=== PATIENT | female | born 1985 | race Caucasian/White ===

== ENCOUNTER 2018-03-27 00:25 | Emergency (ER) | payer MEDICAID ==
[~2018-03-27] VITALS: Ht 172.7 cm; Wt 141.0 kg
[~2018-03-27 00:25] MED LIST: DEPO SHOT
[2018-03-27] MEDS ORDERED: METHYLPREDNISOLONE SOD SUCC 125 MG/2 ML VIAL IM STA (00:46)
[2018-03-27] MEDS ORDERED: ALBUTEROL (0.083%) 2.5MG/3ML NEB HHN STA ×2 (00:46→02:53)
[2018-03-27] MEDS ORDERED: IPRATROPIUM BROMIDE (0.02%) 0.5MG/2.5ML NEB HHN STA ×2 (00:46→02:53)
[2018-03-27 02:06] LABS: UCG SCREEN NEGATIVE
[2018-03-27 04:18] VITALS: BP 159/93
== END 2018-03-27 04:19 | disposition home or self-care (01) ==
LOC: ER 00:25
DX: J45.901 Unspecified asthma with (acute) exacerbation (principal); F12.10 Cannabis abuse, uncomplicated; Z90.49 Acquired absence of other specified parts of digestive tract
CPT/HCPCS: 71045; 81025; 94640; 94644; 96372; 99285; J2930; J7611

== ENCOUNTER 2021-01-22 23:08 | Emergency (ER) | payer MEDICAID ==
[~2021-01-22] VITALS: Ht 172.7 cm; Wt 100.0 kg
[2021-01-22] MEDS ORDERED: IPRATROPIUM BROMIDE (0.02%) 0.5MG/2.5ML NEB HHN STA (23:24)
[2021-01-22] MEDS ORDERED: ALBUTEROL (0.083%) 2.5MG/3ML NEB HHN STA (23:24)
[2021-01-22] MEDS ORDERED: METHYLPREDNISOLONE SOD SUCC 125 MG/2 ML VIAL IM STA (23:24)
[2021-01-23] MEDS ORDERED: PREDNISONE 20MG TABLET PO ONE
[2021-01-23] MEDS ORDERED: ALBU6.7H9 INH (01:08)
[2021-01-23] MEDS ORDERED: ALBU05 NEB (01:08)
[2021-01-23] MEDS ORDERED: P20 MT (01:08)
[2021-01-23] MEDS ORDERED: ALBUTEROL (0.083%) 2.5MG/3ML NEB HHN ONE (01:15)
[2021-01-23 02:00] VITALS: BP 132/81
== END 2021-01-23 02:30 | disposition home or self-care (01) ==
LOC: ER 23:08
DX: R06.02 Shortness of breath (principal)
CPT/HCPCS: 71045; 93005; 94640; 99284; J7512; Z7610

== ENCOUNTER 2021-02-12 08:19 | Emergency (ER) | payer MEDICAID ==
[~2021-02-12] VITALS: Ht 172.7 cm; Wt 114.0 kg
[~2021-02-12 08:19] MED LIST changes: +ALBU05 NEB; +ALBU6.7H9 INH; +P20 MT
[2021-02-12] MEDS ORDERED: PREDNISONE 20MG TABLET PO STA (08:30)
[2021-02-12] MEDS ORDERED: IPRATROPIUM BROMIDE (0.02%) 0.5MG/2.5ML NEB HHN STA (08:30)
[2021-02-12] MEDS: ALBUTEROL (0.083%) 2.5MG/3ML NEB HHN SCH ×3 (09:00→09:53)
[2021-02-12] MEDS ORDERED: ALBU6.7H9 INH (09:58)
[2021-02-12] MEDS ORDERED: P50 MT (09:58)
[2021-02-12 10:03] VITALS: BP 131/74
== END 2021-02-12 10:03 | disposition home or self-care (01) ==
LOC: ER 08:19
DX: J45.901 Unspecified asthma with (acute) exacerbation (principal); F12.10 Cannabis abuse, uncomplicated; Z90.49 Acquired absence of other specified parts of digestive tract
CPT/HCPCS: 94640; 99285; J7512; Z7610

== ENCOUNTER 2021-02-15 13:20 | Emergency (ER) | payer MEDICAID ==
[~2021-02-15] VITALS: Ht 172.7 cm; Wt 109.0 kg
[~2021-02-15 13:20] MED LIST changes: +P50 MT
[2021-02-15] MEDS ORDERED: DEXAMETHASONE 10 MG/ML VIAL IM ONE (13:45)
[2021-02-15] MEDS ORDERED: IPRATROPIUM/ALBUTEROL 0.5-3(2.5)MG/3ML NEB HHN ONE (13:45)
[2021-02-15] MEDS ORDERED: MAGNESIUM 2 G PREMIX 50 ML IV ONE (14:45)
[2021-02-15 16:37] VITALS: BP 135/75
== END 2021-02-15 16:38 | disposition home or self-care (01) ==
LOC: ER 13:20
DX: J45.21 Mild intermittent asthma with (acute) exacerbation (principal); R03.0 Elevated blood-pressure reading, without diagnosis of hypertension; Z20.822 Contact with and (suspected) exposure to COVID-19; Z79.51 Long term (current) use of inhaled steroids
CPT/HCPCS: 71045; 87426; 93005; 94640; 96372; 99285; J1100; Z7610

== ENCOUNTER 2021-08-03 11:09 | Emergency (ER) | payer MEDICAID ==
[~2021-08-03] VITALS: Ht 172.7 cm; Wt 118.0 kg
[2021-08-03] MEDS ORDERED: DEXAMETHASONE 10 MG/ML VIAL IM ONE (11:30)
[2021-08-03] MEDS ORDERED: IPRATROPIUM/ALBUTEROL 0.5-3(2.5)MG/3ML NEB HHN ONE (11:30)
[2021-08-03] MEDS ORDERED: IBUPROFEN 600MG TABLET PO ONE (13:00)
[2021-08-03] MEDS ORDERED: ALBU05 NEB (13:40)
[2021-08-03] MEDS ORDERED: ALBU6.7H9 INH (13:40)
[2021-08-03] MEDS ORDERED: GUAI-741 MT (13:40)
[2021-08-03 13:58] VITALS: BP 141/91
== END 2021-08-03 13:58 | disposition home or self-care (01) ==
LOC: ER 11:09
DX: U07.1 COVID-19 (principal); J45.901 Unspecified asthma with (acute) exacerbation; F12.10 Cannabis abuse, uncomplicated; Z90.49 Acquired absence of other specified parts of digestive tract
CPT/HCPCS: 71045; 87426; 94640; 96372; 99284; C9803; J1100; Z7610